=== PATIENT | female | born 1955 | race Caucasian/White ===

== ENCOUNTER → 2020-05-05 | Outpatient (CLI) | payer MEDICARE ==
[~2020-05-05] MED LIST: CEPHALEXIN500 M1 PO; CYMBALTA 20MG20 MG PO; CYMBALTA 60MG60 MG PO; DOLOPHINE HCL5 MG PO; FENTANYL 25 MCG TD; FLEXERIL 1010 MG/TAB PO; LASIX 20MG TABL20 MG PO; LEVOXYL0.112 MG PO; NEURONTIN300 MG/CAP PO; PROFERRIN ES12 MG PO; VITAMINC250CH; ZESTRIL2.5 MG PO
== END ==
LOC: COL.RAD 12:07
DX: D17.22 Benign lipomatous neoplasm of skin and subcutaneous tissue of left arm (principal)